=== PATIENT | male | born 1975 | race Caucasian/White ===

== ENCOUNTER 2018-11-23 14:39 | Emergency (ER) | payer MEDICAID ==
[~2018-11-23] VITALS: Ht 180.3 cm; Wt 79.5 kg
[2018-11-23] MEDS ORDERED: PRED20 PO (14:49)
[2018-11-23] MEDS ORDERED: PredniSONE 20 MG TABLET PO ONE (16:00)
[2018-11-23] MEDS ORDERED: HydrOXYzine HCL 25 MG TABLET PO ONE (16:00)
[2018-11-23 16:28] VITALS: BP 138/78
== END 2018-11-23 17:12 | disposition home or self-care (01) ==
LOC: EMS 14:40
DX: L50.9 Urticaria, unspecified (principal); L30.9 Dermatitis, unspecified; R51 Headache; F19.90 Other psychoactive substance use, unspecified, uncomplicated; R07.9 Chest pain, unspecified
CPT/HCPCS: 99283; J7512